=== PATIENT | male | born 1995 | race African-American/Black ===

== ENCOUNTER 2019-11-18 22:58 | Emergency (ER) | payer SELFPAY ==
[2019-11-18 23:01] VITALS: BP 139/80; PULSE 71; RESP 20; TEMP 36.8; O2SAT 100
--- NOTE | 2019-11-18 23:22 | ED.MALEGU ---
HPI - Male Genitourinary General Chief complaint: Urogenital-Male Stated complaint: dysuria Time Seen by Provider: 11/18/19 23:08 Source: patient and RN notes reviewed Mode of arrival: ambulatory Limitations: no limitations History of Present Illness HPI Narrative: Pt is a 24 y/o male who presents to the ED with c/o dysuria starting roughly 1 week ago. He notes that he has been having a stinging pain while he urinates for the past week. Pt states that his pain lasts for approximately 10 minutes at a time. He notes that nothing in particular seems to alleviate or aggravate his pain. Pt currently denies any hematuria, penile discharge, back pain, fever, or chills. He states that he hasn't been taking any pain medications for his symptoms. MD Complaint: dysuria Onset (ago): week(s) (1) Location: penis Quality: other (stinging) Exacerbating factors: urination Associated symptoms: Reports denies other symptoms Related Data Allergies Allergy/AdvReac Type Severity Reaction Status Date / Time No Known Allergies Allergy Verified 11/18/19 23:28 Review of Systems Review of Systems: All systems reviewed & are unremarkable except as noted in HPI and below Constitutional: Constitutional: Denies chills, Denies fever(s), Denies headache(s) and Denies weakness Gastrointestinal: Gastrointestinal: Denies abdominal pain, Denies diarrhea, Denies nausea and Denies vomiting Genitourinary: Genitourinary: Denies hematuria, Reports dysuria and Denies penile discharge Musculoskeletal: Musculoskeletal: Denies back pain PMFSH Past Medical History Medical History Healthy adult male Surgical History Surgical History No significant past surgical history Social History Social History Smoking status: Unknown if ever smoked Gender identity (if verbalized by the patient): Male Exam Const: General: no acute distress and well developed Orientation/consciousness: oriented to person, oriented to place, oriented to time and patient oriented x3 HENMT: Head: normocephalic Neck: Neck: normal visual inspection and full ROM Resp: Effort & Inspection: normal respiratory effort Auscultation: clear to auscultation bilaterally Cardio: Rate: regular rate Rhythm: regular rhythm GI: GI Palp: No abdominal tenderness and Yes Soft to palpation Skin: General skin exam: normal color and turgor normal Neuro: General: oriented to person, oriented to place, oriented to time and patient oriented x3 Cognition (Neuro): normal cognition Extrem: General: normal to inspection, full ROM and no pedal edema Psych: Appearance: grossly normal Mental Status: mental status grossly normal Affect: normal affect Course Vital Signs Vital signs: Vital Signs Temperature 36.8 C 11/18/19 23:01 Pulse Rate 71 11/18/19 23:01 Respiratory Rate 20 11/18/19 23:01 Blood Pressure 139/80 11/18/19 23:01 Pulse Oximetry 100 11/18/19 23:01 Temperature 36.8 C 11/18/19 23:01 Pulse Rate 68 11/19/19 00:00 Respiratory Rate 22 H 11/19/19 00:00 Blood Pressure 130/88 11/19/19 00:00 Pulse Oximetry 98 11/19/19 00:00 MDM - Male Genitourinary Lab Data Labs: Lab Results 11/18/19 11/18/19 Range/Units 23:17 23:17 Urine Color Yellow (Yellow) Urine Appearance Clear (Clear) Urine pH 8.0 (5.0-9.0) Ur Specific [place] 1.024 (1.001-1.035) Urine Protein 1+ H (Negative) mg/dL Urine Glucose (UA) Negative (Negative) mg/dL Urine Ketones Negative (Negative) mg/dL Ur Blood (Man) Negative (Negative) Urine Nitrate Negative (Negative) Urine Bilirubin Negative (Negative) Urine Urobilinogen 2.0 H (<2.0) mg/dL Leukocyte Esterase Rfl Trace H (Negative) VANESA/UL Urine RBC 11-20 H (0-2) /hpf Urine WBC 0-3 /hpf Urine Bacteria Trace /hpf Urine Mucus Rare
[2019-11-18] MEDS: cefTRIAXone 250 MG VIAL IM (23:46)
[2019-11-18] MEDS: AZITHROMYCIN 250 MG TABLET 1000 MG PO (23:48)
[2019-11-18 23:49] LABS: Add Urine Microscopic? YES; Appearance Urine Clear (Clear); Bacteria Urine Trace /hpf; Bilirubin Urine Negative (Negative); Blood Urine Negative (Negative); Color Urine Yellow (Yellow); Glucose Urine UA Negative (Negative); Ketones Urine Negative (Negative); Leukocyte Esterase Ur Trace LEU/UL (Negative); Mucus Urine Rare /lpf; Nitrate Urine Negative (Negative); Protein Urine 1+ mg/dL (Negative); Specific Grav Ur 1.024 (1.001-1.035); WBC Urine 0-3 /hpf
[2019-11-19] VITALS: BP 130/88; PULSE 68; RESP 22; O2SAT 98
== END 2019-11-19 | disposition home or self-care (01) ==
PROVIDERS: Emergency Provider Emergency Medicine
DX: N34.2 Other urethritis (principal)
CPT/HCPCS: 81001; 87491; 87591; 96372; 99283; A9270; J0696